=== PATIENT | male | born 1955 | race Caucasian/White ===

== ENCOUNTER 2021-01-10 18:30 | Inpatient (IN) ==
[2021-01-10] MEDS ORDERED: ONDANSETRON INJ 2 MG/ML 2 ML VIAL IV STA (20:06)
[2021-01-10] MEDS ORDERED: SODIUM CHLORIDE 0.9% 1000ML 500 ML IV ONE (20:19)
[2021-01-10] MEDS ORDERED: HYDROmorphone INJ 1 MG/ML SYRINGE IV STA (20:19)
--- NOTE | 2021-01-10 20:27 | Emergency Department Note ---
Impression & Plan Left leg pain, Extremity cyanosis, DVT (deep venous thrombosis), Elevated lactic acid level ED Provider Note NAME: GARY PICKETT AGE: 65 SEX: M : 1955 ARRIVES VIA: Walk-In INFORMANT: [Patient] ED PROVIDER(S): [Jeff Moya MD] CHIEF COMPLAINT: Left leg pain HISTORY OF PRESENT ILLNESS: The patient is a 65-year-old male who states that 3 days ago, he went for a long motorcycle ride. The next day, he began having some stiffness and discomfort in the left leg. Today, the pain seemed worse and the leg seems swollen. In the last 4 hours or so, the leg has turned a bluish color and has become more painful. He feels that his thigh muscles are in spasm. The pain is rated as severe. The patient denies any trauma to the leg. There has been no fever. He has no history of DVT or PE. REVIEW OF SYSTEMS: See HPI for pertinent positives and negatives. A total of ten systems were reviewed and were otherwise negative. PMHx/PSHx: See Below SOCIAL HISTORY: See Below. PHYSICAL EXAM: GENERAL: Patient is in significant distress from pain. HEENT: No acute trauma, normocephalic atraumatic, mucous membranes moist, no nasal congestion, no scleral icterus. NECK: No stridor, no adenopathy, no meningismus, trachea is midline. LUNGS: Clear to auscultation bilaterally, no wheeze, no rhonchi, breath sounds equal. HEART: Without murmurs gallops or rubs, regular rate and rhythm. ABDOMEN: Soft, nontender, bowel sounds positive, no hernias, no peritonitis. EXTREMITIES: The entire left leg from the thigh to the foot is cyanotic in appearance and edematous. The leg is firm to the touch throughout. He does have a strong distal dorsalis pedis pulse on the left. NEUROLOGIC: Oriented x 3, no acute motor or sensory deficits, no focal weakness. SKIN: No rash, no jaundice, no diaphoresis. DIFFERENTIAL DIAGNOSIS: Muscular strain, fracture, dislocation, DVT, joint effusion, infection, soft tissue injury, venous clot, arterial clot, vascular compromise, as well as other pathologies. EMERGENCY DEPARTMENT COURSE/PROCEDURES: MEDICAL DECISION MAKING: There is a mild leukocytosis at 11.9, this is consistent with infection or the stress of his situation. There is a normal hemoglobin and platelet count. There is no coagulopathy. Creatinine is somewhat elevated at 1.74. His CO2 is slightly low. Lactic acid level is quite elevated at 8.8. No worrisome liver enzyme elevation. Left leg venous ultrasound showed an extensive DVT from the left common femoral down to the calf. On exam, the patient's left leg was quite edematous, cyanotic in appearance and the patient was in quite a bit of pain. The patient received IV Dilaudid for pain control. He was given IV saline, 1.5 L. He was given a bolus of IV heparin and placed on a heparin drip. I spoke to our vascular specialist. The patient does not require transfer. He does not require any type of clot retrieval. Anticoagulation, leg elevation and pain control were suggested. I spoke to the patient and manager. The on-call hospitalist has been consulted. The patient is much more comfortable since his treatment here in the ED. Past Med/Surg History Medical History Barretts esophagus Calculus of left ureter Diet-controlled type 2 diabetes mellitus Hairy cell leukemia HLD (hyperlipidemia) HTN (hypertension) Primary open angle glaucoma Surgical History (Updated 01/10/21 @ 22:21 by ENEIDA Desai) History of tonsillectomy Hx of cholecystectomy Social History Smoking Status: Never smoker Preferred Language: German Feels Safe at Home: Yes Allergies Allergies Allergy/AdvReac Type Severity Reaction Status Date / Time Sulfa (Sulfonamide AdvReac Intermediate GI DISTRESS Verified 01/10/21 21:30 Antibiotics) DIAGNOSTIC DYE Allergy Rash Uncoded 01/10/21 21:30 Home Meds Home Medications Medication Instructions Recorded Confirmed acetaminophen [Tylenol Extra 1,000 mg PO TID PRN 12/27/20 01/10/21 Strength] aspirin [Aspir-Low] 81 mg PO DAILY 12/27/20 01/10/21 finasteride 5 mg PO DAILY 12/27/20 01/10/21 glucosamine-chondroitin [Osteo 1 tab PO BID 12/27/20 01/10/21 Bi-Flex] latanoprost 1 drp OPB DAILY 12/27/20 01/10/21 lisinopril 40 mg PO DAILY 12/27/20 01/10/21 omeprazole 20 mg PO BID 12/27/20 01/10/21 Previous Rx's Medication Instructions Recorded ondansetron 4 - 8 mg PO Q8H PRN #14 tab 12/27/20 oxycodone 5 - 10 mg PO Q6H PRN #12 tab 12/27/20 Results & Data (ED) Vital Signs Vital Signs - 24 hr 01/10/21 18:57 01/10/21 20:00 Temperature 35.8 C L Temperature Source Temporal Artery Scan Pulse Rate 87 Pulse Rate [Apical] 95 H Pulse Rhythm [Apical] Regular Pulse Strength [Apical] Normal Respiratory Rate 20 20 Respiratory Effort / Characteristics Non-Labored Spontaneous Non-Labored Spontaneous Respiratory Depth Normal Normal Respiratory Pattern Regular Regular Blood Pressure 142/57 H Blood Pressure [Right Arm] 132/87 Blood Pressure Mean 85 Blood Pressure Mean [Right Arm] 102 Blood Pressure Position Sitting Blood Pressure Position [Right Arm] Lying Pulse Oximetry 98 94 Oxygen Delivery Method Room Air Room Air Sepsis Recent Fever Within 48 Hours No Sepsis New/Unexplained Change in Mental Status No Sepsis Action Taken by Nursing No Action Required Home Medications Current Medication List: was personally reviewed by me Laboratory Data Attestation: I reviewed the patient's lab results. Result diagrams: 01/10/21 20:10 01/10/21 20:05 Lab Results 01/10/21 01/10/21 01/10/21 Range/Units 20:05 20:10 20:22 WBC 11.96 H (4.8-10.8) K/uL RBC 5.16 (4.7-6.1) M/uL Hgb 16.3 (14.0-18.0) g/dL Hct 45.1 (42-52) % MCV 87.4 (80-100) fL MCH 31.6 (25-34) pg MCHC 36.1 H (32-36) g/dL RDW Std Deviation 40.3 (36.4-46.3) fL RDW Coeff of Leida 12.5 (11.5-14.5) % Plt Count 213 (130-400) K/uL MPV 10.0 (7.4-10.4) fL Immature Gran % (Auto) 0.2 % Neut % (Auto) 89.8 % Lymph % (Auto) 6.6 % Sebastian % (Auto) 3.2 % Eos % (Auto) 0.1 % Baso % (Auto) 0.1 % Neut # (Auto) 10.75 H (1.4-6.5) K/uL Lymph # (Auto) 0.79 L (1.2-3.4) K/uL Sebastian # (Auto) 0.38 (0.11-0.59) K/uL Eos # (Auto) 0.01 (0-0.5) K/uL Baso # (Auto) 0.01 (0-0.2) K/uL Immature Gran # (Auto) 0.02 (0.00-0.02) K/uL PT 11.2 (9.0-12.0) Seconds INR 1.1 (0.9-1.1) APTT 24.4 (21.0-31.0) Seconds PTT Ratio 0.9 Sodium 135 L (136-145) mmol/L Potassium 3.4 L (3.5-5.1) mmol/L Chloride 103 (98-107) mmol/L Carbon Dioxide 15 L (21-32) mmol/L Anion Gap 17.0 H (3-11) BUN 22 H (7-18) mg/dl Creatinine 1.74 H (0.6-1.4) mg/dl Est Cr Clr Drug Dosing 46.3 ml/min Est GFR ( Amer) 46.0 ml/min Est GFR (Non-Af Amer) 39.7 ml/min BUN/Creatinine Ratio 12.6 (10-20) Glucose 236 H (70-99) mg/dl Lactate (0.4-2.0) mmol/L Calcium 9.7 (8.5-10.1) mg/dl Magnesium 1.8 (1.8-2.4) mg/dl Total Bilirubin 1.6 H (0.2-1) mg/dl AST 35 (15-37) U/L ALT 75 (12-78) U/L Alkaline Phosphatase 71 (45-117) U/L Total Protein 8.1 (6.4-8.2) gm/dl Albumin 4.7 (3.4-5.0) gm/dl Globulin 3.4 (2.5-4.0) gm/dl Albumin/Globulin Ratio 1.4 (0.9-2) Specimen Hemolysis COVID-19 Eval Order 01/10/21 01/10/21 Range/Units 20:26 21:50 WBC (4.8-10.8) K/uL RBC (4.7-6.1) M/uL Hgb (14.0-18.0) g/dL Hct (42-52) % MCV (80-100) fL MCH (25-34) pg MCHC (32-36) g/dL RDW Std Deviation (36.4-46.3) fL RDW Coeff of Leida (11.5-14.5) % Plt Count (130-400) K/uL MPV (7.4-10.4) fL Immature Gran % (Auto) % Neut % (Auto) % Lymph % (Auto) % Sebastian % (Auto) % Eos % (Auto) % Baso % (Auto) % Neut # (Auto) (1.4-6.5) K/uL Lymph # (Auto) (1.2-3.4) K/uL Sebastian # (Auto) (0.11-0.59) K/uL Eos # (Auto) (0-0.5) K/uL Baso # (Auto) (0-0.2) K/uL Immature Gran # (Auto) (0.00-0.02) K/uL PT (9.0-12.0) Seconds INR (0.9-1.1) APTT (21.0-31.0) Seconds PTT Ratio Sodium (136-145) mmol/L Potassium (3.5-5.1) mmol/L Chloride (98-107) mmol/L Carbon Dioxide (21-32) mmol/L Anion Gap (3-11) BUN (7-18) mg/dl Creatinine (0.6-1.4) mg/dl Est Cr Clr Drug Dosing ml/min Est GFR ( Amer) ml/min Est GFR (Non-Af Amer) ml/min BUN/Creatinine Ratio (10-20) Glucose (70-99) mg/dl Lactate 8.8 H* (0.4-2.0) mmol/L Calcium (8.5-10.1) mg/dl Magnesium (1.8-2.4) mg/dl Total Bilirubin (0.2-1) mg/dl AST (15-37) U/L ALT (12-78) U/L Alkaline Phosphatase (45-117) U/L Total Protein (6.4-8.2) gm/dl Albumin (3.4-5.0) gm/dl Globulin (2.5-4.0) gm/dl Albumin/Globulin Ratio (0.9-2) Specimen Hemolysis COVID-19 Eval Order Covid19 at [facility] Administered Medications Hydromorphone HCl (Hydromorphone Inj 0.5 Mg/0.5 Ml Syr) 0.5 mg IV Q15M PRN PRN Reason: Pain Stop: 01/24/21 21:23 Last Admin: 01/10/21 21:47 Dose: 0.5 mg Documented by: [id number] Heparin Sodium/Dextrose (Heparin Sodium/Dextrose) 25,000 units in 500 mls @ 29 mls/hr IV .[id number] [facility]; Protocol Stop: 02/09/21 21:28 Last Admin: 01/10/21 21:51 Dose: 1,450 units/hr, 29 mls/hr Documented by: [id number] Cosigned by: [id number] Discontinued Medications Heparin Sodium (Porcine) (Heparin Sod (Porcine) 1000 Unit/Ml) 1 units IV NOW ONE Stop: 01/10/21 21:30 Last Admin: 01/10/21 21:50 Dose: 6,000 units Documented by: [id number] Cosigned by: [id number] Hydromorphone HCl (Hydromorphone Inj 1 Mg/Ml Syringe) 1 mg IV NOW STA Stop: 01/10/21 20:20 Last Admin: 01/10/21 20:27 Dose: 1 mg Documented by: [id number] Sodium Chloride (Nss 1000ml) 500 mls @ 999 mls/hr IV .Q31M ONE Stop: 01/10/21 20:49 Last Infusion: 01/10/21 22:00 Dose: 0 mls/hr Documented by: [id number] Admin: 01/10/21 20:29 Dose: 999 mls/hr Documented by: [id number] Ondansetron HCl (Ondansetron Inj 2 Mg/Ml 2 Ml Vial) 4 mg IV NOW STA Stop: 01/10/21 20:07 Last Admin: 01/10/21 20:10 Dose: 4 mg Documented by: [id number] Imaging Data Radiologist's Impression: Venous Doppler Study 01/10/21 20:19 US venous doppler LE LT CLINICAL HISTORY: pain, cyanosis COMPARISON STUDY: No previous studies for comparison. FINDINGS: Grayscale, color-flow, Doppler spectral waveform analysis was performed. There is extensive left lower extremity DVT with involvement of the left common femoral, superficial femoral, popliteal, posterior tibial, peroneal veins. IMPRESSION: 1. Extensive acute left lower extremity DVT with involvement of the left common femoral, superficial femoral, popliteal, posterior tibial, and peroneal veins. ACT 112: Negative or not required by law. Electronically signed by: Chung George M.D. 01/10/2021 8:59 PM Discharge Plan Visit Data Chief Complaint: Leg Injury/Pain Stated Complaint: BACK PAIN, L LEG SWOLLEN RED ED Provider: Jeff Moya Discharge Problem: Left leg pain, Extremity cyanosis, DVT (deep venous thrombosis), Elevated lactic acid level Patient Disposition: Admitted As Inpatient Condition: Fair Forms Stand Alone Forms: [facility] [employer] Prescriptions Prescriptions: No Action latanoprost 0.005 % drops 1 drp OPB DAILY RF: 0 omeprazole 20 mg capsule,delayed release(DR/EC) 20 mg PO BID RF: 0 lisinopril 40 mg tablet 40 mg PO DAILY RF: 0 finasteride 5 mg tablet 5 mg PO DAILY RF: 0 acetaminophen [Tylenol Extra Strength] 500 mg Tablet 1,000 mg PO TID PRN (Reason: Pain) RF: 0 glucosamine-chondroitin [Osteo Bi-Flex] 250-200 mg Tablet 1 tab PO BID RF: 0 aspirin [Aspir-Low] 81 mg Tablet,Delayed Release (Dr/Ec) 81 mg PO DAILY RF: 0 ondansetron 4 mg tablet,disintegrating 4 - 8 mg PO Q8H PRN (Reason: nausea and vomiting) Qty: 14 RF: 0 oxycodone 5 mg tablet 5 - 10 mg PO Q6H PRN (Reason: pain) Qty: 12 RF: 0 Referrals Referrals: Jeff Avila MD [Primary Care Provider] - Discharge Problem: DVT (deep venous thrombosis) Qualifiers: DVT location: lower extremity Affected thrombotic vein of extremity: unspecified vein of extremity Chronicity: acute Laterality: left Qualified Code(s): I82.402 - Acute embolism and thrombosis of unspecified deep veins of left lower extremity
[2021-01-10 20:33] LABS: Hematocrit (blood only) 45.1 % (42-52); Hemoglobin 16.3 g/dL (14.0-18.0); Mean Corpuscular Hemoglobin 31.6 pg (25-34); Mean Corpuscular Hgb Conc 36.1 g/dL (32-36); Mean Corpuscular Volume 87.4 fL (80-100); Platelet Count 213 K/uL (130-400); RDW Coefficient of Variation 12.5 % (11.5-14.5); RDW Standard Deviation 40.3 fL (36.4-46.3); Red Blood Count 5.16 M/uL (4.7-6.1); White Blood Count 11.96 K/uL (4.8-10.8)
[2021-01-10 20:44] LABS: INR 1.1 (0.9-1.1); Partial Thromboplastin Ratio 0.9; Partial Thromboplastin Time 24.4 Seconds (21.0-31.0); Prothrombin Time 11.2 Seconds (9.0-12.0)
[2021-01-10 20:44] LABS: Albumin Level 4.7 gm/dl (3.4-5.0); BUN Creatinine Ratio 12.6 (10-20); Calcium 9.7 mg/dl (8.5-10.1); Creatinine Clr Calc Pharmacy 46.3 ml/min; Est GFR (Non-African American) 39.7 ml/min; Potassium 3.4 mmol/L (3.5-5.1)
[2021-01-10 20:52] LABS: Albumin Globulin Ratio 1.4 (0.9-2); Bilirubin,Total 1.6 mg/dl (0.2-1); Globulin 3.4 gm/dl (2.5-4.0); Total Protein 8.1 gm/dl (6.4-8.2)
--- NOTE | 2021-01-10 21:01 | Ultrasound Report ---
US venous doppler LE LT CLINICAL HISTORY: pain, cyanosis COMPARISON STUDY: No previous studies for comparison. FINDINGS: Grayscale, color-flow, Doppler spectral waveform analysis was performed. There is extensive left lower extremity DVT with involvement of the left common femoral, superficial femoral, popliteal, posterior tibial, peroneal veins. IMPRESSION: 1. Extensive acute left lower extremity DVT with involvement of the left common femoral, superficial femoral, popliteal, posterior tibial, and peroneal veins. ACT 112: Negative or not required by law. Electronically signed by: Chung George M.D. 01/10/2021 8:59 PM
[2021-01-10] MEDS ORDERED: Heparin IV Adult Wt-Based Standard WITH Bolus Protocol IV STA (21:14)
[2021-01-10] MEDS ORDERED: HYDROmorphone INJ 0.5 MG/0.5 ML SYR IV PRN (21:24)
[2021-01-10 21:28] LABS: Basophils # (auto) 0.01 K/uL (0-0.2); Basophils % (auto) 0.1 %; Eosinophils # (auto) 0.01 K/uL (0-0.5); Eosinophils % (auto) 0.1 %; Immature Granulocytes # (auto) 0.02 K/uL (0.00-0.02); Immature Granulocytes % (auto) 0.2 %; Lymphocytes # (auto) 0.79 K/uL (1.2-3.4); Lymphocytes % (auto) 6.6 %; Monocytes # (auto) 0.38 K/uL (0.11-0.59); Monocytes % (auto) 3.2 %; Neutrophils # (auto) 10.75 K/uL (1.4-6.5); Neutrophils % (auto) 89.8 %
[2021-01-10] MEDS ORDERED: HEPARIN SOD (PORCINE) 1000 UNIT/ML IV ONE (21:29)
[2021-01-10] MEDS ORDERED: HEPARIN SODIUM/DEXTROSE 25,000 UNITS/500 ML BAG IV SCH (21:29)
[2021-01-10] MEDS ORDERED: SODIUM CHLORIDE 0.9% 1000ML 1,000 ML IV ONE (21:30)
[2021-01-10] MEDS ORDERED: LACTATED RINGER'S 1,000 ML IV ONE (21:56)
[2021-01-10] MEDS ORDERED: POTASSIUM CHLORIDE CRTAB 20 MEQ TABCR PO STA (21:58)
[2021-01-10 22:16] LABS: Magnesium 1.8 mg/dl (1.8-2.4)
--- NOTE | 2021-01-10 22:31 | History & Physical Report ---
Date of Service January 10, 2021 Assessment & Plan (1) Phlegmasia cerulea dolens of left lower extremity: Please refer to Dr. Rajput's addendum for assessment and plan. History of Present Illness Chief Complaint: Left leg pain, swelling, discoloration Primary Care Provider: Jeff Avila MD 65-year-old male with PMH diet-controlled DM type II, HTN, Walden's esophagus, history of hairy cell leukemia last treatment 2014, and other problems listed below who presents to the ED for evaluation of left leg pain, swelling, discoloration. Patient reports that his symptoms came on suddenly this afternoon. Pain is located in the thigh and patient describes it as cramping and severe in nature. Patient reports going for a long motorcycle ride a few days ago. Patient denies chest pain and shortness of breath. No lightheadedness, dizziness, diaphoresis, syncopal events. Denies abdominal pain, nausea, vomiting, diarrhea. No other recent illnesses, fevers, chills. Denies urinary symptoms. In the ED, LLE venous Doppler shows extensive acute left lower extremity DVT with involvement of the left common femoral, superficial femoral, popliteal, posterior tibial, and peroneal veins. Patient was given IV Dilaudid, IVF, IV Zofran. He was also started on a heparin drip. Allergies Allergy/AdvReac Type Severity Reaction Status Date / Time Sulfa (Sulfonamide AdvReac Intermediate GI DISTRESS Verified 01/10/21 21:30 Antibiotics) DIAGNOSTIC DYE Allergy Rash Uncoded 01/10/21 21:30 Home Medications Medication Instructions Recorded Confirmed Type acetaminophen [Tylenol Extra 1,000 mg PO TID PRN 12/27/20 01/10/21 History Strength] aspirin [Aspir-Low] 81 mg PO DAILY 12/27/20 01/10/21 History finasteride 5 mg PO DAILY 12/27/20 01/10/21 History glucosamine-chondroitin [Osteo 1 tab PO BID 12/27/20 01/10/21 History Bi-Flex] latanoprost 1 drp OPB DAILY 12/27/20 01/10/21 History lisinopril 40 mg PO DAILY 12/27/20 01/10/21 History omeprazole 20 mg PO BID 12/27/20 01/10/21 History ondansetron 4 - 8 mg PO Q8H PRN #14 tab 12/27/20 01/10/21 Rx oxycodone 5 - 10 mg PO Q6H PRN #12 tab 12/27/20 01/10/21 Rx Past Med/Surg History Medical History Barretts esophagus Calculus of left ureter Diet-controlled type 2 diabetes mellitus Hairy cell leukemia HLD (hyperlipidemia) HTN (hypertension) Primary open angle glaucoma Surgical History History of tonsillectomy Hx of cholecystectomy Family History (Updated 01/10/21 @ 22:29 by ENEIDA Desai) Denies family history of Clotting disorder Social History (Updated 01/10/21 @ 22:29 by ENEIDA Desai) Smoking Status: Never smoker Do You Dip or Chew Tobacco: No; Hx Alcohol Use: No Hx Substance Use: No Preferred Language: Singaporean Communication Ability: Effective Beliefs That Will Affect Care: None Current Living Situation: Spouse Feels Safe at Home: Yes Safety Concerns: Feels Safe At This Time Assistive Devices: Denture - Upper and Glasses Review of Systems Review of Systems: ROS per HPI, all other systems reviewed and negative Physical Exam Constitutional: WD/WN, vitals as above Eyes: PERRL, conjunctivae normal, anicteric sclerae ENMT: external ear and nose normal, oropharynx normal Respiratory: normal respiratory effort, lungs clear to auscultation Cardiovascular: Rate/Rhythm: regular rate and regular rhythm Vessels: normal peripheral pulses Extremities: + edema (+3 LLE) Gastrointestinal (Abdomen): normal bowel sounds, soft, nontender, no hepatosplenomegaly Musculoskeletal: Extremities: strength 5/5 throughout and + cyanosis; no clubbing LLE cyanotic extending up to the thigh with +3 edema, palpable left dorsalis pedal pulse Skin: no rashes, warm and dry Neurologic: PERRL, EOMI, accommodation nl, no face palsy, no dysarthria Psychiatric: A+Ox3, euthymic affect Results & Data Results & Data ([facility]) Vital Signs (Past 12 Hours) Vital Signs Temp Pulse Pulse Resp BP BP Pulse Ox 01/10/21 20:00 95 H 20 132/87 94 01/10/21 18:57 35.8 C L 87 20 142/57 H 98 Laboratory Results Short CBC 01/10/21 Range/Units 20:10 WBC 11.96 H (4.8-10.8) K/uL Hgb 16.3 (14.0-18.0) g/dL Hct 45.1 (42-52) % Plt Count 213 (130-400) K/uL BMP 01/10/21 20:05 Sodium 135 L Potassium 3.4 L Chloride 103 Carbon Dioxide 15 L BUN 22 H Creatinine 1.74 H Glucose 236 H Calcium 9.7 Liver Function 01/10/21 Range/Units 20:05 Total Bilirubin 1.6 H (0.2-1) mg/dl AST 35 (15-37) U/L ALT 75 (12-78) U/L Alkaline Phosphatase 71 (45-117) U/L Albumin 4.7 (3.4-5.0) gm/dl Diagnostic Findings Venous Doppler Study 01/10/21 20:19 US venous doppler LE LT CLINICAL HISTORY: pain, cyanosis COMPARISON STUDY: No previous studies for comparison. FINDINGS: Grayscale, color-flow, Doppler spectral waveform analysis was performed. There is extensive left lower extremity DVT with involvement of the left common femoral, superficial femoral, popliteal, posterior tibial, peroneal veins. IMPRESSION: 1. Extensive acute left lower extremity DVT with involvement of the left common femoral, superficial femoral, popliteal, posterior tibial, and peroneal veins. ACT 112: Negative or not required by law. Electronically signed by: Chung George M.D. 01/10/2021 8:59 PM Supervising Physician Co-Signing Physician Notes IM ATTENDING : Patient seen and examined. History obtained from patient, family, and records. Preceding documentation by ENEIDA Person reviewed. In addition: CT abdomen pelvis initial read: Decreased left hydronephrosis. 2 mm ureteral stone now visualized to the urinary bladder. Left nonobstructing renal calculus. Stable left adenoma. Hepatic steatosis. Prostatomegaly. Mild hernia. CT left femur initial read: Small knee effusion. Mild edema anteromedial left upper thigh with suggestion of mild swelling abductor musculature and sartorius muscles which are nonspecific muscle strains or contusion. No drainable fluid collection is visualized. CT left tibia-fibula initial read: No acute fracture or acute traumatic osseous malalignment. Old fracture distal tibia. Mild degenerative changes ankle. Small intestine fight superior pole of patella at the insertion of quadriceps tendon. Small knee effusion. Mild subcutaneous edema throughout the lower extremity is nonspecific. No drainable fluid collection. FINAL ASSESSMENT AND PLAN as follows : LLE swelling secondary to acute onset extensive LLE DVT First episode, no obvious provoking factor for now. Severe sepsis SIRS plus lactic acid elevation plus ARF Secondary LLE cellulitis Rule out compartment syndrome Hypertension, slightly elevated secondary to discomfort Hyperlipidemia on statin Rx Hairy cell leukemia status post chemotherapy currently in remission BPH, elevated outpatient PSA, recent outpatient prostate needle biopsy from 2019 negative for malignancy DM2, diet controlled, patient markedly hyperglycemic, outpatient hemoglobin A1c of 6.20 July 2020 Essential tremors, at baseline Medical telemetry IV Heparin Defer discussion regarding home anticoagulant choices between patient and AM provider. Consider involving patient's [facility] oncologist (Dr. Ashraf) regarding therapeutic decision. Outpatient malignancy screening given unprovoked extensive clot. (Patient due for follow-up colonoscopy and PSA recheck this year.) CS, Doxycycline Monitor creatinine, lactic acid response to IVF. Orthopedics consult Re: Left leg swelling rule out compartment syndrome given very cool left lower extremity and severe lactic acidosis. (Patient to be evaluated by Dr. Soriano at the ER.) Hold home ERIC inhibitor until creatinine back to baseline. Basal insulin, ISS BG goal 1 10-1 40, carb count coverage, update hemoglobin A1c DVT prophylaxis. IV Heparin Full code Text document was generated using [employer] voice recognition software. It may contain grammatical or spelling errors. Kindly contact undersigned for clarification of any documentation item in question.
[2021-01-10 22:35] LABS: Thyroid Stimulating Hormone 2.55 uIu/ml (0.300-4.500)
[2021-01-10] MEDS ORDERED: MAGNESIUM SULFATE / D5W 1 GM/100 ML BAG IV ONE (22:46)
[2021-01-10] MEDS ORDERED: DOXYCYCLINE HYCLATE 100 MG in DEXTROSE 5% 100 ML IV STA (22:47)
[2021-01-10 23:45] LABS: BUN Creatinine Ratio 17.6 (10-20); Calcium 9.2 mg/dl (8.5-10.1); Creatinine Clr Calc Pharmacy 57.5 ml/min; Est GFR (African American) 59.8 ml/min; Est GFR (Non-African American) 51.6 ml/min; Potassium 3.9 mmol/L (3.5-5.1)
[2021-01-11] MEDS ORDERED: NORMOSOL-R 1,000 ML IV ONE (00:30)
[2021-01-11] MEDS ORDERED: CARBOHYDRATES FOR HYPOGLYCEMIA PO PRN (01:07)
[2021-01-11] MEDS ORDERED: PROMETHAZINE HCL 12.5 MG in SODIUM CHLORIDE 0.9% 50 ML IV PRN (01:07)
[2021-01-11] MEDS ORDERED: oxyCODONE HCL IR 5 MG TAB (IMMEDIATE RELEASE) PO PRN (01:07)
[2021-01-11] MEDS ORDERED: GLUCOSE 10 TABS/TUBE PO PRN (01:07)
[2021-01-11] MEDS ORDERED: POTASSIUM CHLORIDE CRTAB 20 MEQ TABCR PO STA (01:07)
[2021-01-11] MEDS ORDERED: GLUCOSE 40% GEL 15 GM TUBE PO PRN (01:07)
[2021-01-11] MEDS ORDERED: HYDROmorphone INJ 0.5 MG/0.5 ML SYR IV PRN (01:07)
[2021-01-11] MEDS ORDERED: GLUCAGON FOR INJ 1 MG VIAL SQ PRN (01:07)
[2021-01-11] MEDS ORDERED: DEXTROSE 50% 50 ML SYRINGE IV PRN (01:07)
[2021-01-11] MEDS ORDERED: ACETAMINOPHEN 325 MG TAB PO PRN ×2 (01:07→06:11)
[2021-01-11 01:39] LABS: Appearance Urine Cloudy (Clear); Bilirubin Urine Negative (Negative); Blood Urine Negative (Negative); Color Urine Dark Yellow; Epithelial Cell Urine Auto 20-30 /lpf (0-5); Glucose Urine UA 1+ (Negative); Ketones Urine 2+ (Negative); Leukocyte Esterase Urine Negative (Negative); Nitrite Urine Negative (Negative); Protein Urine 1+ (Negative); Specific Gravity Urine 1.032 (1.000-1.030); Urobilinogen Urine Negative (Negative)
--- NOTE | 2021-01-11 01:47 | Consultation Report ---
DATE: 01/11/2021 REASON FOR CONSULTATION: Left leg pain and swelling. HISTORY OF PRESENT ILLNESS: Mr. Fried is 65. He presented to the Emergency Room with left leg pain and swelling and was admitted for an extensive left lower extremity DVT. He took a long motorcycle ride for 2 or 3 hours on Saturday. He thereafter developed what he called a sciatica-type pain which is a pain in the back of his left thigh from the hip to the knee area. This developed after the motorcycle ride and persisted. He has also noted a little bit of stiffness of his leg. He went for a walk earlier today and had increased pain. He also noted what he described as a groin pulling sensation and a Charley horse in his thigh. He came to the Emergency Room with pain that he rated 6/10 and his pain increased to about 9/10. He has received 1.5 mg of Dilaudid since he has been here over the past 6 hours. He also reported that he had a little bit of numbness in his toes when he initially came in. He reports that his pain is significantly relieved with administration of medication including the heparin. He has not had any injury. He has not done any over exercise, and he has not had any recent surgery. PAST MEDICAL HISTORY: Reviewed and noted. He has had a remote history of leukemia, hypertension, diabetes. He has recently had a kidney stone. There is no report of a blood clotting disorder. PAST SURGICAL HISTORY: He has had a tonsillectomy and cholecystectomy. MEDICATIONS: Reviewed and noted, include Tylenol, aspirin, finasteride, latanoprost, lisinopril, omeprazole, ondansetron, and oxycodone. ALLERGIES: HE IS ALLERGIC TO SULFA. PHYSICAL EXAMINATION: He is sitting in bed with his leg resting comfortably on several pillows. He appears in no distress at all. Without provocation, he is able to move his leg and toes. He is reporting 0/10 pain in the left leg at rest. There is slight reddish purplish discoloration of the leg, which I think is attributable to his DVT. His sensation is normal and equal to the opposite side throughout the entire left leg. His dorsalis pedis and posterior tibial pulses are 1+. He is able to actively lift his leg, bend his knee to about 120 degrees. He reports getting some shots in his knee in the past. He can flex and extend his ankle. None of these cause any pain. Furthermore, I am able to passively flex his knee and extend his knee and hip without any discomfort. I am able to maximally passively plantarflex and dorsiflex his ankle and toes with no pain. His strength to bending and straightening his knee, flexing and extending his toes and ankle are all 5/5 and he reports no pain. There is no tenderness to palpation of the thigh, knee, leg, ankle. He has enlargement of the thigh and calf with firmness of the muscles, but no tenderness to palpation. There is no pitting edema present. IMAGING DATA: His ultrasound shows an extensive DVT. No x-rays have been done and none are necessary at this point. IMPRESSION: Extensive left lower extremity deep venous thrombosis. PLAN: My findings are discussed with the patient and communicated with Dr. Rajput. I do not think that he has compartment syndrome. He does not have any paresthesias or any significant pain at rest. Furthermore, he does not have any pulselessness or pain out of proportion to any physical findings. He does not have any paresthesias or any pain with passive movement of the entire leg. I think that his symptoms are likely attributable to his blood clot and I do not think that any further intervention is needed for detecting compartment syndrome. I would recommend and have written a communication order and discussed with Dr. Rajput that ongoing monitoring of his neurovascular status is necessary to ensure that a compartment syndrome does not develop. I have asked the nurses to monitor for pain with passive movement or active movement of the leg as well as standard neurovascular checks every 2 hours. I have informed the patient that if he experiences any substantially increased pain, paresthesias, swelling, or any other concerning problems, that he should let the nurses know immediately. I think routine treatment of his DVT otherwise would be appropriate and we will continue to monitor him. The compartments of the thigh and leg are enlarged, have increased turgor compared to the other side, but are not tense. The patient is experiencing no pain at rest or with any of the physical exam maneuvers that I performed.
[2021-01-11] MEDS: INSULIN ASPART 100 UNITS/ML 3 ML PEN SC SCH ×3 (01:49→12:25)
[2021-01-11 01:50] LABS: Cast Urine Automated >30 /lpf (0-5)
[2021-01-11 01:52] LABS: Bacteria Urine Automated 1+ (Negative)
[2021-01-11 01:54] LABS: RBC Urine Automated 0-4 /hpf (0-4)
[2021-01-11] MEDS ORDERED: INSULIN GLARGINE SOLOSTAR 100 UNITS/ML 3 ML PEN SC STA (02:10)
[2021-01-11] MEDS ORDERED: LACTATED RINGER'S 1,000 ML IV ONE ×2 (02:30→07:58)
[2021-01-11] MEDS ORDERED: LACTATED RINGER'S 1,000 ML IV SCH (04:30)
[2021-01-11 05:03] LABS: Partial Thromboplastin Ratio 2.2
[2021-01-11 05:18] LABS: Partial Thromboplastin Time 58.9 Seconds (21.0-31.0)
[2021-01-11 05:52] LABS: Estimated Average Glucose 131 mg/dl; Hemoglobin A1C 6.2 % (4.5-5.6)
[2021-01-11 06:20] LABS: Hematocrit (blood only) 39.9 % (42-52); Immature Granulocytes # (auto) 0.01 K/uL (0.00-0.02); Immature Granulocytes % (auto) 0.1 %; Lymphocytes % (auto) 9.7 %; Mean Corpuscular Hgb Conc 35.1 g/dL (32-36); Mean Corpuscular Volume 88.3 fL (80-100); Mean Platelet Volume 9.5 fL (7.4-10.4); Monocytes # (auto) 0.39 K/uL (0.11-0.59); Monocytes % (auto) 5.4 %; Neutrophils # (auto) 6.09 K/uL (1.4-6.5); Neutrophils % (auto) 84.8 %; Platelet Count 142 K/uL (130-400); RDW Coefficient of Variation 12.8 % (11.5-14.5); RDW Standard Deviation 40.9 fL (36.4-46.3); Red Blood Count 4.52 M/uL (4.7-6.1); White Blood Count 7.19 K/uL (4.8-10.8)
[2021-01-11 06:52] LABS: BUN Creatinine Ratio 19.6 (10-20); Calcium 8.8 mg/dl (8.5-10.1); Est GFR (African American) 94.4 ml/min; Est GFR (Non-African American) 81.5 ml/min; Potassium 4.5 mmol/L (3.5-5.1)
--- NOTE | 2021-01-11 08:16 | XRay Report ---
XR chest 1V portable CLINICAL HISTORY: Renal failure. COMPARISON STUDY: 02/21/2011 FINDINGS: The heart is mildly enlarged. There is no failure. There is no focal pulmonary consolidatio n. There are no pleural effusions.[ IMPRESSION: No active disease in the chest. ACT 112: Negative or not required by law. Electronically signed by: Chung George M.D. 01/11/2021 8:15 AM
--- NOTE | 2021-01-11 08:53 | CT Scan Report ---
CT SCAN OF THE LEFT FEMUR WITHOUT IV CONTRAST CLINICAL HISTORY: Left leg swelling. COMPARISON STUDY: No priors. TECHNIQUE: CT scan of the left femur is performed from the bony pelvis to the proximal tibia and fibu la. Images are reviewed in the axial, sagittal, and coronal planes. IV contrast was not administered for this examination. A dose lowering technique was utilized adhering to the principles of ALARA. Not e that interpretation is suboptimal without plain film correlate. FINDINGS: The skeletal structures are well mineralized for age. There is no evidence of left femoral fracture. The visualized left hemipelvis appears intact. The left hip and knee joints are maintained. No lytic or blastic lesion is identified. The regional musculature is diffusely heterogeneous and sl ightly edematous. Subcutaneous soft tissue edema and trace fluid is seen in the left groin and along the lateral aspect of the mid to distal thigh. The prostate gland is enlarged and heterogeneous. The bladder is normal as imaged. There is no left pelvic sidewall or inguinal lymphadenopathy. No subcuta neous gas is seen. No organized fluid collection is identified. IMPRESSION: 1. No bony abnormality is identified involving the left femur. 2. The musculature of the left thigh is diffusely edematous and heterogeneous. The appearance is nons pecific. Correlate with clinical and laboratory findings for evidence of a nonspecific myositis or po ssibly rhabdomyolysis. 3. Subcutaneous soft tissue edema and fluid is noted in the left groin and throughout the left thigh. ACT 112: Negative or not required by law. Dictated: 01/11/2021 8:36 AM Transcribed: 01/11/2021 8:46 AM Marie [id number] [facility] Electronically signed by: Jeff Sánchez M.D. 01/11/2021 8:52 AM
[2021-01-11] MEDS ORDERED: PANTOprazole 40 MG TAB PO SCH (09:00)
[2021-01-11] MEDS ORDERED: FINASTERIDE 5 MG TAB PO SCH (09:00)
[2021-01-11] MEDS ORDERED: ASPIRIN 81 MG ECTAB PO SCH (09:00)
[2021-01-11] MEDS ORDERED: DOXYCYCLINE HYCLATE 100 MG CAP PO SCH (09:00)
[2021-01-11] MEDS ORDERED: LATANOPROST 0.005% OP SOLN 2.5 ML BTL OPB SCH (09:00)
--- NOTE | 2021-01-11 09:59 | CT Scan Report ---
CT SCAN OF THE ABDOMEN AND PELVIS WITHOUT CONTRAST CLINICAL HISTORY: back pain COMPARISON STUDY: December 27, 2020 TECHNIQUE: CT scan of the abdomen and pelvis was performed from the lung bases to the proximal femurs . Images are reviewed in the axial, sagittal, and coronal planes. IV contrast was not administered fo r this examination. A dose lowering technique was utilized adhering to the principles of ALARA. CT DOSE: 1436.33 mGy.cm FINDINGS: Lower chest: Multiple linear densities within bilateral bases which could represent subsegmental atel ectasis or scarring. Innumerable calcified granulomas are again seen. Irregular soft tissue nodule is seen within the lingula measuring 1.3 cm in size and was also visualized during prior study Liver: Diffuse decrease in attenuation of liver parenchyma without evidence of focal lesions or intra hepatic biliary dilatation Gallbladder: Gallbladder is surgically absent. Spleen: Normal in size and attenuation. Pancreas: Unremarkable. Adrenal glands: Right adrenal gland is unremarkable. Stable 2.1 cm left adrenal lesion likely represe nting adenoma or myolipoma. Kidneys: The unenhanced kidneys are normal in size without hydronephrosis. There is no contour deform ing renal mass lesion. Redemonstration of the left nephrolithiasis, previously seen left hydronephros is is resolved. Largest calculus is measuring 4 mm in size. Punctate calculus is seen within the urin muna bladder lumen near right ureter vesicular junction and could represent passed stone. Bowel: Distal portion of esophagus is slightly dilated and fluid-filled. Moderate hiatal hernia is se en. Bowel loops are nondilated. Appendix is normal in caliber. Mild diverticulosis of sigmoid colon i s seen without evidence of diverticulitis. Peritoneum: There is no intraperitoneal free air or abdominal ascites. Vasculature: The abdominal aorta is normal in course and caliber. Adenopathy: None. Pelvic viscera: Urinary bladder is fluid-filled. Prostate gland is enlarged. Skeletal structures: Degenerative changes of the spine. IMPRESSION: 1. Punctate calculus is seen within urinary bladder lumen near ureter disease clear junction which c ould represent passed stone. No hydronephrosis seen. Nonobstructive nephrolithiasis on the left. 2. Redemonstration of concerning spiculated solid nodule within lingula measuring 13 mm in size. Fur ther evaluation with CT of the chest without IV contrast on nonemergency basis is recommended. 3. Hepatic steatosis. 4. Hiatal hernia. 5. Diverticulosis of sigmoid colon without evidence of diverticulitis. 6. Enlarged prostate gland. 7. Stable left adrenal lesion which could represent adenoma or myelolipoma. ACT 112: Negative or not required by law. The above report was generated using voice recognition software. It may contain grammatical, syntax o r spelling errors. Electronically signed by: Tiana Corral DO 01/11/2021 9:58 AM
--- NOTE | 2021-01-11 10:19 | CT Scan Report ---
CT tib/fib LT wo con CT DOSE: CLINICAL HISTORY: LLE swelling TECHNIQUE: A dose lowering technique was utilized adhering to the principles of ALARA. COMPARISON STUDY: None. FINDINGS: No acute fracture or dislocation seen. There is deformity within the distal fibular diaphysis likely representing sequela from prior fractur e. Mild degenerative changes of the ankle joint with subchondral sclerosis and periarticular calcificati ons. Also patellar osteophytes are seen representing degenerative process. Mild effusion of the knee joint is seen. IMPRESSION: No acute fracture or dislocation. Degenerative changes as detailed above. ACT 112: Negative or not required by law. The above report was generated using voice recognition software. It may contain grammatical, syntax o r spelling errors. Electronically signed by: Tiana Corral DO 01/11/2021 10:18 AM
--- NOTE | 2021-01-11 10:48 | Progress Notes ---
DATE: 01/11/2021 The patient is resting comfortably in bed. His leg feels fine. He denies any paresthesias or pain at rest. On examination, there is improved softness of the calf compartments. The thigh remains firm. There is, however, no tenderness throughout the entire leg. He has no pain with passive movement of the hip, knee, ankle or toes. He has no pain with active movement of the left leg either. Dorsalis pedis and posterior tibial pulses are 1+ with brisk capillary refill less than 2 seconds and normal sensation throughout the foot. There is more normal coloration, pinkish nature of the left calf compared to the opposite side. There is still a little bit of purplish discoloration of the thigh. He has been afebrile and his vital signs are stable. His labs today are noted with a normal white blood cell count. He is on heparin. His PTT is elevated. He has an extensive left leg DVT. Currently, he is asymptomatic in terms of any evidence of acute compartment syndrome. Recommend continued monitoring for any signs or symptoms of compartment syndrome as well as his neurovascular status. We will continue to monitor. Further orthopedic interventions such as surgery or diagnostic testing are not necessary at the present time. In bed at rest, 0/10 pain.
--- NOTE | 2021-01-11 13:40 | Discharge Summary ---
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 Patient reports that his symptoms came on suddenly this afternoon. Pain is located in the thigh and patient describes it as cramping and severe in nature. Patient reports going for a long motorcycle ride a few days ago. Patient denies chest pain and shortness of breath. No lightheadedness, dizziness, diaphoresis, syncopal events. Denies abdominal pain, nausea, vomiting, diarrhea. No other recent illnesses, fevers, chills. Denies urinary symptoms. In the ED, LLE venous Doppler shows extensive acute left lower extremity DVT with involvement of the left common femoral, superficial femoral, popliteal, posterior tibial, and peroneal veins. Patient was given IV Dilaudid, IVF, IV Zofran. He was also started on a heparin drip. Admission Exam Per Admitting Provider Constitutional: WD/WN, vitals as above Eyes: PERRL, conjunctivae normal, anicteric sclerae ENMT: external ear and nose normal, oropharynx normal Respiratory: normal respiratory effort, lungs clear to auscultation Cardiovascular: Rate/Rhythm: regular rate and regular rhythm Vessels: normal peripheral pulses Extremities: + edema (+3 LLE) Gastrointestinal (Abdomen): normal bowel sounds, soft, nontender, no hepatosplenomegaly Musculoskeletal: Extremities: strength 5/5 throughout and + cyanosis; no clubbing LLE cyanotic extending up to the thigh with +3 edema, palpable left dorsalis pedal pulse Skin: no rashes, warm and dry Neurologic: PERRL, EOMI, accommodation nl, no face palsy, no dysarthria Psychiatric: A+Ox3, euthymic affect Principal Diagnosis Phlegmasia cerulea dolens of left lower extremity Extensive left lower extremity deep venous thrombosis Walden's Esophagus DM II diet controlled HTN HLD Discharge Exam ROS-No Headache, No Visual Changes, No Nausea, No Vomiting, No Fever, No Chills, No Neck Pain or Stiffness, No Chest Pain, No Palpitations, No SOB, No CALDWELL, No Cough, No Sputum, No Wheezing, No Abdominal Pain, No Diarrhea, No Hematemesis, No Hemoptysis, No Unexpected Weight Loss, No Flank pain, No Melena, No Hematochezia, No Frequency, No Urgency, No Burning, No Hematuria, No Rashes, No Diaphoresis. Appetite is Normal Physical Exam Gen-AAO x 3, NAD, Afebrile Head-NCAT, EOMI, PERRLA, Anicteric Sclera, No Posterior Pharyngeal Erythema Neck-Supple, No JVD, No Thyromegaly, No Masses, No LAD, No Bruits Lungs-Clear to Auscultation Bilaterally, No Rales, No Rhonchi, No Wheezing, No Crepitus Chest-No S4, +S1, +S2, No S3, No Murmurs, No Rubs, No Gallops, No Ectopy Abdomen-Soft, Bowel Sounds Present, Non Tender, Non Distended, No Hepatomegaly, No Splenomegaly, No Palpable Masses, No Rebound, No Rigidity, No Guarding Musculoskeletal-Full Range of Motion Bilaterally, No CVAT Extremities-No Cyanosis, No Clubbing, No Edema, Thigh firm and ecchymotic Nuero-Cranial Nerves II-XII grossly intact, Motor WNL, DTRs WNL, Strength WNL, Non Focal Psych-Normal Mood Discharge Data Allergies Allergy/AdvReac Type Severity Reaction Status Date / Time Sulfa (Sulfonamide AdvReac Intermediate GI DISTRESS Verified 01/10/21 21:30 Antibiotics) DIAGNOSTIC DYE Allergy Rash Uncoded 01/10/21 21:30 Consultations 01/10/21 21:38 ED Decision to Admit Stat 01/10/21 23:45 Consult Orthopedic Surgery Routine Ordered Studies 01/10/21 20:19 US venous doppler LE LT Stat 01/10/21 23:15 CT abd pelvis wo con Urgent CT femur LT wo con Urgent CT tib/fib LT wo con Urgent Current Diagnoses Phlebitis and thrombophlebitis of unspecified deep vessels of left lower extremity (01/11/21) Allergies Sulfa (Sulfonamide Antibiotics) Adverse Reaction (Intermediate, Verified 01/10/21 21:30) GI DISTRESS DIAGNOSTIC DYE Allergy (Uncoded 01/10/21 21:30) Rash Height/Weight/Isolation Height 5 ft 10 in Weight 96.4 kg Chemistry 01/10/21 01/10/21 01/11/21 20:05 23:17 06:00 Sodium 135 L 135 L 136 Potassium 3.4 L 3.9 4.5 D Chloride 103 106 110 H Carbon Dioxide 15 L 19 L 22 Anion Gap 17.0 H 10.0 4.0 BUN 22 H 25 H 19 H Creatinine 1.74 H 1.40 D 0.96 D Glucose 236 H 247 H 135 H Urinalysis 01/11/21 01:07 Urine Color Dark Yellow Urine Appearance Cloudy A Urine pH 5.0 Ur Specific [place] 1.032 H Urine Protein 1+ H Urine Glucose (UA) 1+ H Urine Ketones 2+ H Urine Blood Negative Urine Nitrite Negative Urine Bilirubin Negative Microbiology 01/11/21 01:07 Urine,Clean Catch Urine Culture - Pending 01/10/21 23:17 Blood Aerobic Blood Culture - Pending 01/10/21 23:17 Blood Anaerobic Blood Culture - Pending 01/10/21 20:22 Blood Aerobic Blood Culture - Pending 01/10/21 20:22 Blood Anaerobic Blood Culture - Pending Hospital Course (1) Phlegmasia cerulea dolens of left lower extremity: (2) Left leg pain: (3) Extremity cyanosis: (4) DVT (deep venous thrombosis): (5) Elevated lactic acid level: (6) Barretts esophagus: (7) HLD (hyperlipidemia): (8) Diet-controlled type 2 diabetes mellitus: Patient was placed on a Heparin gtt and seen by Dr Soriano. His symptoms improved and I switched him to Apixaban. I will DC him today on Apixaban, first dose now. Follow up c PCP for eval in 3-5 days. Total Time Total Time Spent Total Time Spent (In Minutes): 45 mins Total Time Includes: Examination of the Patient, Discharge Planning, Medication Reconciliation and Communication With Other Providers Discharge Plan Discharge Items Patient Disposition: Home - Self-Care Reason For Visit: SEPSIS, LEG DVT Discharge Diagnosis: Phlegmasia cerulea dolens of left lower extremity Extensive left lower extremity deep venous thrombosis Walden's Esophagus DM II diet controlled HTN HLD Condition on Discharge: Fair Health Concerns: worsening symptoms Activity: As commented below Activity Comment: relax through weekend then activities as tolerated Lifting: Gradually increase as tolerated Bathing: No limitations Sexual Activity: When tolerated Exercise/Sports: Gradually increase as tolerated Driving/Machine Use: Resume 3 days after discharge Weightbearing: Full weightbearing Non-emergency contact: Primary Care Provider Call non-emergency contact if: you have any medication questions and your symptoms worsen Follow-up/Referrals: Jeff Avila MD [Primary Care Provider] - (Date & Time 01/17/2021 10:20 AM Provider Marjorie Garces MD Department General Internal Medicine [facility] ) Diet: Carb Consistent or DM2 and Heart Healthy Addtl Attending Provider Instructions: None Pending Studies at Discharge: No Stand-Alone Forms: My [facility] [employer], Smoking Cessation Medications and DC Order Prescriptions: New Eliquis 5 mg tablet 10 mg PO BID Qty: 90 RF: 0 Continued latanoprost 0.005 % drops 1 drp OPB DAILY RF: 0 omeprazole 20 mg capsule,delayed release(DR/EC) 20 mg PO BID RF: 0 lisinopril 40 mg tablet 40 mg PO DAILY RF: 0 finasteride 5 mg tablet 5 mg PO DAILY RF: 0 acetaminophen [Tylenol Extra Strength] 500 mg Tablet 1,000 mg PO TID PRN (Reason: Pain) RF: 0 glucosamine-chondroitin [Osteo Bi-Flex] 250-200 mg Tablet 1 tab PO BID RF: 0 aspirin [Aspir-Low] 81 mg Tablet,Delayed Release (Dr/Ec) 81 mg PO DAILY RF: 0 ondansetron 4 mg tablet,disintegrating 4 - 8 mg PO Q8H PRN (Reason: nausea and vomiting) Qty: 14 RF: 0 oxycodone 5 mg tablet 5 - 10 mg PO Q6H PRN (Reason: pain) Qty: 12 RF: 0 Discharge Orders: Discharge Order (Routine); Ordered 01/11/21 Ordered By: Devon Bray/Other Patient Handouts: High Blood Sugar (Hyperglycemia), Managing Type 2 Diabetes, 5 Steps for Eating Healthier, A1C Admission Data Admit Date/Time: 01/11/21 00:00 Attending Provider: Devon Mckeon Admit Provider: Jamal Rajput Primary Care Provider: Jeff Avila Other Providers: Jamal Rajput ; Kevin Soriano Supervising Physician Co-Signing Physician Notes IM ATTENDING : Patient seen and examined. History obtained from patient, family, and records. Preceding documentation by ENEIDA Person reviewed. In addition: CT abdomen pelvis initial read: Decreased left hydronephrosis. 2 mm ureteral stone now visualized to the urinary bladder. Left nonobstructing renal calculus. Stable left adenoma. Hepatic steatosis. Prostatomegaly. Mild hernia. CT left femur initial read: Small knee effusion. Mild edema anteromedial left upper thigh with suggestion of mild swelling abductor musculature and sartorius muscles which are nonspecific muscle strains or contusion. No drainable fluid collection is visualized. CT left tibia-fibula initial read: No acute fracture or acute traumatic osseous malalignment. Old fracture distal tibia. Mild degenerative changes ankle. Small intestine fight superior pole of patella at the insertion of quadriceps tendon. Small knee effusion. Mild subcutaneous edema throughout the lower extremity is nonspecific. No drainable fluid collection. FINAL ASSESSMENT AND PLAN as follows : LLE swelling secondary to acute onset extensive LLE DVT First episode, no obvious provoking factor for now. Severe sepsis SIRS plus lactic acid elevation plus ARF Secondary LLE cellulitis Rule out compartment syndrome Hypertension, slightly elevated secondary to discomfort Hyperlipidemia on statin Rx Hairy cell leukemia status post chemotherapy currently in remission BPH, elevated outpatient PSA, recent outpatient prostate needle biopsy from 2019 negative for malignancy DM2, diet controlled, patient markedly hyperglycemic, outpatient hemoglobin A1c of 6.20 July 2020 Essential tremors, at baseline Medical telemetry IV Heparin Defer discussion regarding home anticoagulant choices between patient and AM provider. Consider involving patient's G oncologist (Dr. Ashraf) regarding therapeutic decision. Outpatient malignancy screening given unprovoked extensive clot. (Patient due for follow-up colonoscopy and PSA recheck this year.) CS, Doxycycline Monitor creatinine, lactic acid response to IVF. Orthopedics consult Re: Left leg swelling rule out compartment syndrome given very cool left lower extremity and severe lactic acidosis. (Patient to be evaluated by Dr. Soriano at the ER.) Hold home ERIC inhibitor until creatinine back to baseline. Basal insulin, ISS BG goal 1 10-1 40, carb count coverage, update hemoglobin A1c DVT prophylaxis. IV Heparin Full code Text document was generated using [employer] voice recognition software. It may contain grammatical or spelling errors. Kindly contact undersigned for clarification of any documentation item in question.
[2021-01-11] MEDS ORDERED: APIXABAN 5 MG TABLET PO SCH (13:45)
[2021-01-12] MEDS ORDERED: INSULIN GLARGINE SOLOSTAR 100 UNITS/ML 3 ML PEN SC SCH (09:00)
--- NOTE | 2021-01-23 07:21 | Coding Query ---
CODING QUERY To promote full compliance with coding requirements relating to patient care, provider participation is requested in all cases of transaction manager uncertainty. Please assist us with the question(s) below: Coding Question(s): Severe Sepsis is documented on H&P and Discharge. Patient has elevated Lactic Acid, elevated pulse rate >90 and 96.4F temperature. Please clarify below: (x ) Severe Sepsis POA ( ) Sepsis ( ) Severe Sepsis/Sepsis Ruled Out ( ) Other Please Explain: Thank you Yoav Akins Principal Diagnosis: "that condition established after study, to be chiefly responsible for occasioning the admission of the patient to the hospital for care." Co-Existing Principal Diagnosis: "when two or more diagnoses equally meet the criteria for principal diagnosis as determined by the circumstances of admission, diagnostic work up, and/or therapy provided, and the Alphabetic Index, Tabular List, or another coding guideline does not provide sequencing direction, any one of the diagnoses may be sequenced first." "When the physician has documented what appears to be a current diagnosis in the body of the record, but has not included the diagnosis in the final diagnostic statement, the physician should be asked whether the diagnosis should be added." (Source [facility]oding [facility] 2 QTR90. p3-4) MARY JANE
== END 2021-01-11 14:50 | disposition home or self-care (01) | DRG 872 ==
LOC: ED 18:30 → 2W 01-11